=== PATIENT | female | born 1980 | race Caucasian/White ===

== ENCOUNTER → 2016-06-28 | Outpatient (CLI) | payer BC ==
--- NOTE | 2016-06-28 14:43 | MY ---
EXAMINATION: Bilateral digital mammography utilizing CAD. HISTORY: Screening exam. Comparison is made to previous studies dated 05/31/2014, 03/30/2013. FINDINGS: Bilateral extremely dense breast tissue. No suspicious calcifications, masses or kike ectural distortions. No pathologic appearing lymph nodes, no abnormal skin thickening or nipple in version. CAD highlighted regions appear normal at this time. IMPRESSION: BI-RADS category I - negative mammogram. Continued screening according to ACR-ACS gu idelines suggested. THE FALSE-NEGATIVE RATE OF MAMMOGRAM IS APPROXIMATELY 10%. MANAGEMENT OF A PALPABLE ABNORMALITY MUST BE BASED UPON CLINICAL GROUNDS. SENSITIVITY FOR DETECTION OF ABNORMALITIES IN DENSE BREASTS IS LOW. NOTE: A letter will be sent to the patient regarding findings. [facility] -- MANUELA Echavarria [phone] - FAX [phone]
== END | disposition home or self-care (01) ==
LOC: MW.MAM 10:19
PROVIDERS: ATTEND Obstetrics & Gynecology
DX: Z12.31 Encounter for screening mammogram for malignant neoplasm of breast (principal); Z80.3 Family history of malignant neoplasm of breast
CPT/HCPCS: G0202; G0202-26

== ENCOUNTER 2022-12-15 16:55 | Emergency (ER) | payer OTHER, BC ==
[2022-12-15 19:14] VITALS: BP 122/80; PULSE 72
== END 2022-12-15 19:14 | disposition home or self-care (01) ==
LOC: MW.ED 16:55
DX: S93.402A Sprain of unspecified ligament of left ankle, initial encounter (principal); Z88.8 Allergy status to other drugs, medicaments and biological substances; X50.1XXA Overexertion from prolonged static or awkward postures, initial encounter; Y92.89 Other specified places as the place of occurrence of the external cause; Y99.0 Civilian activity done for income or pay
CPT/HCPCS: 73610-26-LT; 73610-LT; 99283